=== PATIENT | male | born 1945 | race Hispanic/Latino ===

== ENCOUNTER 2025-02-04 06:32 | Day surgery (SDC) | payer OTHER ==
[~2025-02-04] VITALS: Ht 167.6 cm; Wt 93.4 kg
[2025-02-04] VITALS (11 sets, daily range): BP systolic 106–152; BP diastolic 51–94; PULSE 69–79; RESP 16–18; TEMP 97.5–98.4
[~2025-02-04 06:32] MED LIST: AMLO5TAB6 PO; ASPI-1005 PO; ATOR40TA71 PO; CLOP-31 PO; CYAN500T3 PO; DOXA8TAB2 PO; HYDR-4064 PO; ISOS30TA92 PO; METO25TA6 PO; MULT1CAP32 PO; NITRO; OMEP20CA12 PO; SERT50TA PO
[2025-02-04] MEDS ORDERED: OLME40TA18 PO (07:59)
[2025-02-04] MEDS ORDERED: SERT-440 PO (07:59)
[2025-02-04] MEDS ORDERED: TAMS-55 PO (08:08)
[2025-02-04] MEDS ORDERED: ATOR40TA69 PO (08:08)
[2025-02-04] MEDS ORDERED: GABA-529 PO (08:08)
[2025-02-04] MEDS ORDERED: RANO500T6 PO (08:08)
[2025-02-04] MEDS ORDERED: LINA72CA PO (08:08)
[2025-02-04] MEDS ORDERED: VITAD50000 PO (08:08)
[2025-02-04] MEDS ORDERED: CART1TAB5 PO (08:08)
[2025-02-04] MEDS ORDERED: HYDR-4068 PO (08:08)
[2025-02-04] MEDS ORDERED: METO37.5 PO (08:08)
[2025-02-04] MEDS ORDERED: CETI10CA5 PO (08:08)
[2025-02-04] MEDS: 0.9%NACL 1000ML 1,000 ML IV ONE (08:10)
== END 2025-02-04 11:10 | disposition home or self-care (01) ==
LOC: DAH 06:32
PROVIDERS: ATTEND Internal Medicine Gastroenterology
DX: K59.04 Chronic idiopathic constipation (principal); K29.50 Unspecified chronic gastritis without bleeding; K57.30 Diverticulosis of large intestine without perforation or abscess without bleeding; K31.89 Other diseases of stomach and duodenum; I10 Essential (primary) hypertension; I25.10 Atherosclerotic heart disease of native coronary artery without angina pectoris; F32.A Depression, unspecified; E78.5 Hyperlipidemia, unspecified; Z86.0100 Personal history of colon polyps, unspecified; Z87.442 Personal history of urinary calculi; Z90.5 Acquired absence of kidney; Z79.82 Long term (current) use of aspirin; Z79.899 Other long term (current) drug therapy; Z53.8 Procedure and treatment not carried out for other reasons
CPT/HCPCS: 43239; 45378; J7030 ×2; J2704; A4620; A7002; J3490

== ENCOUNTER → 2025-04-08 | Outpatient (CLI) | payer OTHER ==
[~2025-04-08] MED LIST changes: -AMLO5TAB6 PO; -ASPI-1005 PO; +ATOR40TA69 PO; -ATOR40TA71 PO; -CYAN500T3 PO; -DOXA8TAB2 PO; +GABA-529 PO; -HYDR-4064 PO; +HYDR-4068 PO; -ISOS30TA92 PO; +LEVO5TAB13 PO; +LINA72CA PO; -METO25TA6 PO; +METO37.5 PO; -MULT1CAP32 PO; -NITRO; +OLME40TA18 PO; -OMEP20CA12 PO; +RANO500T6 PO; +SERT-440 PO; -SERT50TA PO; +TAMS-55 PO; +VITAD50000 PO
--- NOTE | 2025-04-08 12:45 | NUR ---
MBSS COMPLETED (OUTPATIENT). No aspirations; deep non-transient penetrations during the swallow with thin liquids via continuous sips with no response; transient penetration during the swallow with thin liquids via straw sips and mixed textures with no response. RECOMMENDATIONS: regular solids, thin liquids (single &small sips), and pills whole with liquids. COMPENSATORY STRATEGIES: 1. sit upright during oral intake 2. small sips/bites 3. single sips 4. extra dry swallows 5. slow oral intake NOTES: Pt with cervical spine instrumentation at C5-C6 level not affecting the swallowing. Pt reports globus sensation not necessarily after neck surgery. Pt with missing teeth. DIAGNOSTIC FINDINGS: Pt presented with mild pharyngeal dysphagia characterized by decreased tongue base retraction; decreased hyo-laryngeal elevation/excursion; decreased sensation; enlarged cricopharyngeal muscle and cervical spine instrumentation not affecting the swallowing; and decreased epiglottic inversion evidenced by tongue pumping; piecemeal deglutition; residue on base of tongue and valleculae cleared with extra dry swallows; resulting in no aspirations; deep non-transient penetrations during the swallow with thin liquids via continuous sips with no response; transient penetration during the swallow with thin liquids via straw sips and mixed textures with no response. PLASTER PATTERN CASTER reviewed results and recommendations with patient. PLASTER PATTERN CASTER educated patient on risks and consequences of aspiration. Speech therapy warranted at this time to address mild pharyngeal dysphagia. All questions answered. Addendum: 04/08/[address] [facility] Amended: Links added.
--- NOTE | 2025-04-14 09:48 | HMCIMG ---
MODIFIED BARIUM SWALLOW W CINE REASON: DYSPHAGIA; FEEDING Difficulties, unspecified FINDINGS: Fluoroscopic assistance was provided to the speech pathologist while performing examination. For findings and dietary recommendations, refer to speech pathologist's report. FLUORO TIME: 3.3 minutes fluoro time IMPRESSION: Modified barium swallow as described.
== END | disposition home or self-care (01) ==
LOC: RAH 11:49
PROVIDERS: ATTEND Internal Medicine Gastroenterology
DX: R13.10 Dysphagia, unspecified (principal)
CPT/HCPCS: 74230; 92611